=== PATIENT | female | born 1995 ===

== ENCOUNTER 2016-12-14 09:15 | Emergency (ER) | payer MEDICARE ==
[2016-12-14 09:38] VITALS: O2SAT 99
--- NOTE | 2016-12-14 09:56 | ERPHSYRPT ---
- History of Present Illness Time Seen by Provider: 12/14/16 09:50 Source: patient Patient Subjective Stated Complaint: pt states she was standing at her job and had a sudden onset of near syncope. pt states she did not loose consciousness. Triage Nursing Assessment: pt pink, warm, dry. pt ambulated into Er without difficulty. pupils perrl. Physician History: Father states that the patient's brother diagnosed with vasovagal syncope after similar events as this patient today. No other FH. Patient was a fullterm vaginal delivery without developmental abn. LNMP. Witnessed: bystander Prior Episodes: single episode today Timing/Duration: today Precipitating Factors: lightheadedness Context: standing, activity ([employer] job x 1 week) Loss of Consciousness: no loss of consciousness, dazed Charcter of event(s): felt faint, almost passed out Allergies/Adverse Reactions: amoxicillin Allergy (Verified 12/14/16 09:37) Home Medications: Escitalopram Oxalate 10 mg [Lexapro 10 MG] 10 mg PO DAILY 12/14/16 [History] Hx Tetanus, Diphtheria Vaccination/Date Given: Yes (up to date) Hx Influenza Vaccination/Date Given: No Hx Pneumococcal Vaccination/Date Given: No Immunizations Up to Date: Yes - Past Medical History Pertinent Past Medical History: No Psycho-Social History: Depression - Past Surgical History Past Surgical History: No - Social History Smoking Status: Current every day smoker How long have you smoked: 1 Exposure to second hand smoke: No Drug Use: none Patient Lives Alone: No - Female History Hx Last Menstrual Period: now - Review of Systems Constitutional: No Symptoms Eyes: No Symptoms Ears, Nose, & Throat: No Symptoms Respiratory: No Symptoms Cardiac: No Symptoms Abdominal/Gastrointestinal: No Symptoms Musculoskeletal: No Symptoms Skin: No Symptoms Neurological: Dizziness, Headache Psychological: No Symptoms Endocrine: No Symptoms Hematologic/Lymphatic: No Symptoms Immunological/Allergic: No Symptoms Physical Exam - Nursing Vital Signs Nursing Vital Signs: Initial Vital Signs Temperature 97.9 F Temperature Source Oral Pulse Rate 70 Respiratory Rate 18 Blood Pressure [Right Arm] 119/88 Pain Intensity 0 - [place] Coma Scale Best Eye Response (Fito): (4) open spontaneously Best Verbal Response ([place]): (5) oriented Best Motor Response (Fito): (6) obeys commands Fito Total: 15 - Physical Exam General Appearance: no apparent distress Eye Exam: bilateral eye: normal inspection (20/30 OU), PERRL, EOMI Ears, Nose, Throat Exam: pharynx normal, moist mucous membranes Neck Exam: normal inspection, non-tender, supple, full range of motion Respiratory: normal breath sounds, lungs clear, airway intact Cardiovascular: regular rate/rhythm, normal heart sounds, normal peripheral pulses Gastrointestinal: soft, normal bowel sounds Back Exam: normal inspection Extremity Exam: normal inspection, normal range of motion, pelvis stable Mental Status: alert, oriented x 3, 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 Exam: normal speech, PERRL Motor/Sensory: no motor deficit, no sensory deficit Skin Exam: normal color, warm, dry SpO2 Interpretation: normal SpO2: 99 Oxygen Delivery: Room Air - Course Nursing assessment & vital signs reviewed: Yes EKG Interpreted by Me: RATE (69), Sinus Rhythm, NORMAL AXIS, NORMAL INTERVALS, NORMAL QRS, Other (Normal ECG) - CT Exams Head CT Interpretation: Negative Ordered Tests: Active Orders 24 hr Category Date Time Status Real Estate Associate Attorney STAT Care 12/14/16 09:59 Active Clean Catch Urine Specimen STAT Care 12/14/16 10:04 Active EKG-ER Only STAT Care 12/14/16 09:44 Active IV Insertion STAT Care 12/14/16 09:44 Active Orthostatic Vital Signs STAT Care 12/14/16 09:54 Active Visual Acuity STAT Care 12/14/16 10:01 Active HEAD WITHOUT CONTRAST [CT] Stat Exams 12/14/16 10:03 Completed CBC W DIFF Stat Lab 12/14/16 10:18 Completed CMP Stat Lab 12/14/16 10:18 Completed CULTURE,URINE Stat Lab 12/14/16 10:18 Received MG [MAGNESIUM] Stat Lab 12/14/16 10:18 Completed UA W/ MICROSCOPIC Stat Lab 12/14/16 10:18 Completed Lab/Rad Data: Laboratory Result Diagrams 12/14/16 10:18 12/14/16 10:18 Laboratory Results 12/14/16 12/14/16 12/14/16 Range/Units 10:18 10:18 10:18 WBC 10.4 (4.0-10.5) K/mm3 RBC 4.46 (4.1-5.4) M/mm3 Hgb 13.0 (12.0-16.0) gm/dl Hct 40.1 (35-47) % MCV 89.9 (78-100) fl MCH 29.1 (26-32) pg MCHC 32.4 (32-36) g/dl RDW 13.8 (11.5-14.0) % Plt Count 157 (150-450) K/mm3 MPV 13.3 H (6-9.5) fl Gran % 71.4 H (36.0-66.0) % Lymphocytes % 18.4 L (24.0-44.0) % Monocytes % 7.3 (0.0-12.0) % Eosinophils % 2.8 (0.00-5.0) % Basophils % 0.1 (0.0-0.4) % Basophils # 0.01 (0-0.4) Sodium 144 (136-145) mEq/L Potassium 3.4 L (3.5-5.1) mEq/L Chloride 109 H (98-107) mEq/L Carbon Dioxide 24.9 (21-32) mEq/L Anion Gap 13.1 (5-15) MEQ/L BUN 10 (9-20) mg/dL Creatinine 0.62 (0.55-1.30) mg/dl Estimated GFR > 60 ML/MIN Glucose 79 (70-110) MG/DL Calcium 9.1 (8.5-10.1) mg/dL Magnesium 1.8 (1.8-2.4) mg/dL Total Bilirubin 0.30 (0.2-1.0) mg/dL AST 12 L (15-37) U/L ALT 17 (12-78) U/L Alkaline Phosphatase 51 (46-116) U/L Serum Total Protein 7.2 (6.4-8.2) gm/dL Albumin 3.5 (3.4-5.0) g/dL Ur Collection Type VOID Urine Color YELLOW (YELLOW) Urine Appearance CLEAR (CLEAR) Urine pH 5.5 (5-6) Ur Specific [place] >=1.030 (1.005-1.025) Urine Protein TRACE (Negative) Urine Glucose (UA) NEGATIVE (NEGATIVE) mg/dL Urine Ketones NEGATIVE (NEGATIVE) Urine Nitrite NEGATIVE (NEGATIVE) Urine Bilirubin NEGATIVE (NEGATIVE) Urine Urobilinogen 0.2 (0-1) mg/dL Urine WBC (Auto) NEGATIVE (NEGATIVE) Urine RBC (Auto) TRACE HEMOLYZED (0-5) Billy/ul Urine Microscopic RBC 0-2 (0-2) /HPF Urine Microscopic WBC 2-5 (0-5) /HPF Ur Epithelial Cells FEW (FEW) /HPF Urine Bacteria MODERATE (NEGATIVE) /HPF Urine Mucus MODERATE (NEGATIVE) /HPF Specimen Received 12/14/16 1023 - Progress Progress: improved Will see patient in: other (PCP 1 week) Counseled pt/family regarding: lab results, diagnosis, need for follow-up, rad results - Departure Time of Disposition: 11:20 Departure Disposition: Home Clinical Impression: Vasovagal near syncope, Hypokalemia UTI (urinary tract infection) Qualifiers: Urinary tract infection type: site unspecified Hematuria presence: without hematuria Qualified Code(s): N39.0 - Urinary tract infection, site not specified Condition: Stable Critical Care Time: No Additional Instructions: Near syncope Prescriptions: Smz/Tmp Ds Tablet [Bactrim Ds Tablet] 1 udtab PO BID #10 tablet
[2016-12-14 10:28] LABS: Collection Type VOID; Ph 5.5 (5-6)
[2016-12-14 10:29] LABS: ADD URINE CULTURE? YES (NO); Bacteria MODERATE /HPF (NEGATIVE); COMPLETE URINE MICROSCOPIC? YES; Epithelial Cells FEW /HPF (FEW); Mucus MODERATE /HPF (NEGATIVE)
--- NOTE | 2016-12-14 10:47 | XRAY ---
Indication: Headache. Near syncope. Multiple contiguous axial images obtained through the head without contrast. Comparison: None Normal appearing brain parenchyma, ventricles, and bony calvarium. Visualized paranasal sinuses and mastoid air cells are clear. Impression: Normal CT head without contrast exam. CT DI 71.01
[2016-12-14 10:52] LABS: ALBUMIN 3.5 g/dL (3.4-5.0); ALKALINE PHOSPHATASE 51 U/L (46-116); ANION GAP 13.1 MEQ/L (5-15); BLOOD UREA NITROGEN 10 mg/dL (9-20); CHLORIDE 109 mEq/L (98-107); Carbon Dioxide 24.9 mEq/L (21-32); Glucose 79 MG/DL (70-110); MAGNESIUM 1.8 mg/dL (1.8-2.4); Potassium 3.4 mEq/L (3.5-5.1); SGOT/AST 12 U/L (15-37); SGPT/ALT 17 U/L (12-78); SODIUM 144 mEq/L (136-145); Total Protein 7.2 gm/dL (6.4-8.2)
[2016-12-14 11:00] LABS: BASOPHIL % 0.1 % (0.0-0.4); Eosinophil % 2.8 % (0.00-5.0); Granulocytes % 71.4 % (36.0-66.0); Lymphocytes % 18.4 % (24.0-44.0); Mean Cell Volume 89.9 fl (78-100); Mean Corpuscular Hemoglobin 29.1 pg (26-32); Mean Platelet Volume 13.3 fl (6-9.5); Monocytes % 7.3 % (0.0-12.0); Platelet Count 157 K/mm3 (150-450); Red Blood Count 4.46 M/mm3 (4.1-5.4); Red Cell Distribution Width 13.8 % (11.5-14.0); White Blood Count 10.4 K/mm3 (4.0-10.5)
[2016-12-14] MEDS ORDERED: Klor Con 10 MEQ PO ONE ×2 (11:27→11:31)
[2016-12-14 11:37] VITALS: BP 127/65; PULSE 78
== END 2016-12-14 11:45 | disposition home or self-care (01) ==
LOC: ED 09:15
DX: R55 Syncope and collapse (principal); E87.6 Hypokalemia; N39.0 Urinary tract infection, site not specified
CPT/HCPCS: 36000; 36415; 70450; 80053; 81000; 83735; 85025; 87086; 93005; 93041; 99284; A9270-GY